=== PATIENT | male | born 1985 | race Caucasian/White ===

== ENCOUNTER 2021-04-24 19:11 | Emergency (ER) | payer MEDICAID, SELFPAY ==
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
[2021-04-24 19:44] VITALS: BP 110/64; BP 118/67; PULSE 130; PULSE 97; RESP 18; TEMP 37.2; O2SAT 95; BMI 25.7
[2021-04-24 19:47] VITALS: BP 118/67; PULSE 97; RESP 18; TEMP 37.2; O2SAT 95
[2021-04-24 19:48] LABS: MANUAL DIFF FLAG NO
[2021-04-24 19:50] LABS: Basophils Percent Auto 0.2 % (0-2); Eosinophils Percent Auto 0.1 % (0-4); Hematocrit 39.9 % (42.0-52.0); Hemoglobin 14.2 g/dl (14.0-18.0); Imm Gran Abs Auto 0.03 X10*3/uL (0.00-0.03); Imm Gran Pct Auto 0.3 % (0.0-0.4); Lymphocytes Absolute Auto 1.3 X10*3/uL (1.2-4.9); Lymphocytes Percent Auto 13.1 % (20-40); Mean Corpuscular HGB Conc 35.6 g/dl (31.0-36.0); Mean Corpuscular Hemoglobin 32.5 pg (27.0-33.0); Mean Corpuscular Volume 91.3 fL (80.0-98.0); Mean Platelet Volume 9.7 fL (9.4-12.4); Monocytes Absolute Auto 0.5 X10*3/uL (0.1-1.2); Monocytes Percent Auto 4.9 % (2-11); Neutrophils Absolute Auto 7.9 x10*3/uL (2.0-8.3); Neutrophils Percent Auto 81.4 % (45-73); Platelet Count 233 X10*3/uL (160-400); Red Blood Count 4.37 X10*6/uL (4.60-5.80); Red Cell Distribution Width 12.5 % (11.0-16.0); White Blood Count 9.7 X10*3/uL (4.8-10.8)
[2021-04-24 19:59] LABS: Glucose, Whole Blood 119 mg/dL (60-115)
--- NOTE | 2021-04-24 20:01 | PC.NURSE ---
Pt awake, noted to be lethargic, not answering questions when asked. [place] [employer] remains with patient at this time. Pt placed in C-spine collar resting still in stretcher at this time. IV intact. Vitals stable. Will continue to monitor.
[2021-04-24 20:03] LABS: Ethanol 22 mg/dL
[2021-04-24 20:04] LABS: Prothrombin Time 11.3 SEC (9.9-13.0)
[2021-04-24 20:07] LABS: Alanine Aminotransferase 97 U/L (0-40); Albumin Level 4.8 g/dL (3.5-5.0); Alkaline Phosphatase 89 U/L (39-117); Anion Gap 15 (12-20); Aspartate Amino Transferase 85 U/L (5-37); Bilirubin Direct 0.2 mg/dL (0.0-0.5); Bilirubin Total 0.5 mg/dL (0.0-1.0); Blood Urea Nitrogen 11 mg/dL (9-16); Calcium 9.8 mg/dL (8.4-10.2); Carbon Dioxide 25 mmol/L (22-29); Chloride 101 mmol/L (96-108); Creatinine Clr Calc Pharmacy 106.7; Estimated Glomerular Filt Rate > 60; Glucose Random 107 mg/dL (60-115); Potassium 4.6 mmol/L (3.3-5.1); Sodium 136 mmol/L (135-145); Total Protein 8.7 g/dL (6.5-8.0)
[2021-04-24] MEDS: iohexoL 350 MG/ML 100 ML INFUS..BTL IV (20:49)
[2021-04-24 21:02] LABS: Appearance Urine CLEAR; Color Urine YELLOW; Glucose Urine UA NEG (NEG); Leukocyte Esterase Urine NEG (NEG); Nitrite Urine NEG (NEG); PH 5.5 (5.0-8.0); Specific Gravity - Urine 1.015 (1.005-1.025); UACC Culture Trigger NO; Urine Blood TRACE (NEG); Urine Ketones NEG (NEG); Urine Protein TRACE MG/DL (NEG-TRACE)
[2021-04-24 21:10] LABS: Amorphous Sediment Urine TRACE /LPF; Granular Casts Urine 0-2 /LPF; Hyaline Casts Urine 0-2 /LPF; RBC Urine 0-2 /HPF (0); Squamous Epithelial Cell Urine TRACE /LPF; WBC Urine 0 /HPF (0-4)
[2021-04-24 23:42] VITALS: BP 116/72; PULSE 84; RESP 18; TEMP 37.1; O2SAT 96
== END 2021-04-24 23:47 | disposition home or self-care (01) ==
LOC: HO.ED 23:48
PROVIDERS: Emergency Medicine; Emergency Provider Emergency Medicine Emergency Medical Services
DX: Z04.1 Encounter for examination and observation following transport accident (principal); R40.0 Somnolence; M54.2 Cervicalgia; F10.920 Alcohol use, unspecified with intoxication, uncomplicated; Y90.1 Blood alcohol level of 20-39 mg/100 ml
CPT/HCPCS: 36415; 70450; 71260; 72125; 74177; 80048; 80076; 81001; 81003; 82077; 82947; 85025; 85610; 99284; Q9967